=== PATIENT | female | born 1950 | race Caucasian/White ===

== ENCOUNTER 2019-08-03 09:30 | Outpatient (RCR) | payer MEDICARE, BC, SELFPAY ==
--- NOTE | 2019-06-29 10:29 | OTOPEVAL ---
OCCUPATIONAL THERAPY INITIAL EVALUATION REPORT 06/29/2019 Thank you for referring Sheela Harris to [facility]. Skilled OT indicated 1-2x/week for 5 weeks for deficits described below. Please review, sign, date and return this plan of care FLY. I agree with and certify that the following plan of care is medically necessary. 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 Prior Level of Function Activity Level (Last 3 Months) Hand Dominance Right Comments Additional Prior Level of Function Patient reports increased Comments difficulty with opening containers, lifting anything with weight, completing her workouts with 10 lb weights, snapping her bra in the back, and using her L hand when driving. Pain Assessment Timing of Pain Assessment Timing of Pain Assessment Assessment Pain Scale Pain Scale Used Numeric (1 - 10) Self Report Pain Assessment Left Arm(s) Reported Pain Level 3 Pain Description Aching,Tightness Lowest Pain Intensity 1 Greatest Pain Intensity 8 Pain Score Pain Score 3: Self Report Upper Extremity Range of Motion Scapular/ Shoulder Range of Motion Left Reason Not Measured WNL/Left Elbow/Forearm Range of Motion Left Reason Not Measured WNL/Left Wrist Range of Motion Right Wrist Flexion - Active 65 Wrist Extension - Active 70 Wrist Radial Deviation - Active 15 Wrist Ulnar Deviation - Active 40 Left Wrist Flexion - Active 40 Wrist Flexion - Passive 70 Wrist Extension - Active 60 Wrist Extension - Passive 70 Wrist Radial Deviation - Active 10
--- NOTE | 2019-08-03 09:53 | OTOPEVAL ---
OCCUPATIONAL THERAPY DISCHARGE NOTE 08/03/19 Sheela has met her goals with OT and is currently independent with all home exercises. Plan to D/C today. Thank you for referring Sheela Harris to [facility] [place][Note 2]. Please review, sign, date and return this D/C FLY. I agree with and certify that the following plan of care is medically necessary. Referring Physician Date Referring Provider: MARILYN DAVID MD *OT Outpatient Re-Evaluation & Discharge Evaluation Information Problem Diagnosis L arm weakness post surgery Additional Evaluation Detail Patient's left anterior forearm was a graft site for her tongue after she had part of her tongue resected due to cancer. Subjective Information Sheela reports having no Query Text:As Reported By Patient/ functional restrictions at Family this time. She reports feeling more strong and flexible. She reports having some weakness for which she plans to continue to strengthen with her home exercises and she also has returned to going to the gym. Pain Assessment Timing of Pain Assessment Timing of Pain Assessment Re-assessment Self Report Self Report Pain Level 0 Pain Score Pain Score 0: Self Report Upper Extremity Range of Motion Wrist Range of Motion Left Wrist Flexion - Active 65 Wrist Flexion - Passive 70 Wrist Extension - Active 70 Wrist Radial Deviation - Active 20 Wrist Ulnar Deviation - Active 40 Wrist Range of Motion Comments Flexion improved from 40* Extension improved from 60* RD improved from 10* UD remained WNL at 40* Finger Range of Motion Left Reason Not Measured WNL/Left Finger Range of Motion Comments (L) full fist, hook fist, lumbricals (MCP flexion), and flat fist are all intact. Thumb Range of Motion Left Reason Not Measured WNL/Left Hand Die Maker/Pinch Strength Assessment Hand Left Die Maker Strength (lbs) 44.33 Lateral Pinch Strength (lbs) 6.67 Palmar Pinch Strength (lbs) 4.67 Tip Pinch Strength (lbs) 2 Hand Die Maker/Pinch Strength Comments Die Maker improved from 37.33 lbs. Lateral improved from 4.33 lbs. Palmar improved from 2.33 lbs. Tip improved from 0.5 lbs. Palpation Assessment Palpation Palpation Well healed scar tissue, scar extends
== END 2019-09-20 12:49 | disposition home or self-care (01) ==
LOC: ANHOT 09:30
DX: R29.898 Other symptoms and signs involving the musculoskeletal system (principal)
CPT/HCPCS: 97018; 97035; 97110; 97140; 97165